=== PATIENT | female | born 1975 | race Caucasian/White ===

== ENCOUNTER → 2017-05-03 | Outpatient (CLI) | payer OTHER ==
--- NOTE | 2017-05-03 09:33 | WOMENS IMAGING REPORT ---
EXAM DESCRIPTION: 3D SCREENING MAMMO BILAT COMPLETED DATE/TIME: 05/03/2017 8:47 am REASON FOR STUDY: ROUTINE SCREENING;Z12.31 Z12.31 ENCNTR SCREEN MAMMOGRAM FOR MALIGNANT NEOPLASM OF MARIA DOLORES COMPARISON: None. TECHNIQUE: Standard craniocaudal and mediolateral oblique views of each breast recorded using digita l acquisition and breast tomosynthesis. LIMITATIONS: None. FINDINGS: No masses, calcifications or architectural distortion. No areas of suspicion. Read with the assistance of CAD. .[facility] - R2 Cenova Version 1.3 .[facility] Imaging - R2 Cenova Version 1.3 .[facility] Imaging - R2 Cenova Version 2.4 .[facility] - R2 Cenova Version 2.4 .[facility] - R2 [employer] Field Technician Version 9.2 IMPRESSION: NORMAL MAMMOGRAM. BIRADS 1. BREAST DENSITY: b. There are scattered areas of fibroglandular density. BIRAD: 1 NEGATIVE RECOMMENDATION: ROUTINE SCREENING COMMENT: The patient has been notified of the results by letter per SA requirements. Additional no tification policies are in place for contacting patient with suspicious or incomplete findings. Quality ID #[id number]: The [employer] recommends an annual screening mammogram for women aged 40 years or over. This facility utilizes a reminder system to ensure that all patients receive reminder letters, and/or direct phone calls for appointments. This includes reminders for routine scr eening mammograms, diagnostic mammograms, or other Breast Imaging Interventions when appropriate. Th is patient will be placed in the appropriate reminder system. The [employer] (ACR) has developed recommendations for screening MRI of the breast s in certain patient populations, to be used in conjunction with mammography. Breast MRI surveillanc e may be appropriate for women with more than 20% lifetime risk of developing breast cancer as deter mined by genetic testing, significant family history of the disease, or history of mantle radiation f or Hodgkins Disease. ACR Practice Guidelines 2008. DBT Technology DBT is a type of tomographic mammography. With conventional mammography, overlapping breast tissue ma y make lesions difficult to detect, even with good compression. DBT uses an x-ray tube that rotates a round the breast, taking images at different angles. These images are then combined to create thin sl ices of the breast that the radiologist can view as a 3D reconstruction. The [employer] unit can perform full-field digital mammograms (2D imaging); or DBT (3D imaging); or both, in a combination mode that quickly performs both the mammogram and the tomosynthesis scan while the breast is still compressed. PQRS 6045F: Fluoroscopic imaging is not utilized for breast tomosynthesis. TECHNICAL DOCUMENTATION: FINDING NUMBER: (1) ASSESSMENT: (1) JOB ID: [id number] [employer]- All Rights Reserved Reading location - IP/workstation name: [facility]
== END ==
LOC: WI 08:25
PROVIDERS: ATTEND Nurse Practitioner Primary Care
DX: Z12.31 Encounter for screening mammogram for malignant neoplasm of breast (principal); Z80.3 Family history of malignant neoplasm of breast
CPT/HCPCS: 77063; 77067

== ENCOUNTER 2018-10-30 18:46 | Emergency (ER) | payer OTHER ==
[2018-10-30 19:17] VITALS: BP 104/62
[2018-10-30] MEDS ORDERED: LIDOCAINE 2% VISCOUS SOLN 20 ML UDCUP PO ONE (19:34)
[2018-10-30] MEDS ORDERED: IBUPROFEN 800 MG TABLET PO ONE (19:34)
--- NOTE | 2018-10-30 19:39 | ER Document Report ---
HPI - HPI Patient complains to provider of: sore throat Time Seen by Provider: 10/30/18 19:22 Onset: Last week Onset/Duration: Persistent Quality of pain: Achy Pain Level: 4 Context: Patient presents complaining of sore throat body aches for the past week. No fever. Child is here with similar symptoms. Associated Symptoms: Body/muscle aches, Sore throat. denies: Nonproductive cough, Productive cough, Earache, Fever Exacerbated by: Denies Relieved by: Denies Similar symptoms previously: Yes Recently seen / treated by doctor: No - ROS ROS below otherwise negative: Yes Systems Reviewed and Negative: Yes All other systems reviewed and negative - CONSTITUTIONAL Constitutional: DENIES: Fever - EENT EENT: REPORTS: Sore Throat. DENIES: Ear Pain, Congestion - RESPIRATORY Respiratory: DENIES: Coughing - GASTROINTESTINAL Gastrointestinal: DENIES: Nausea, Patient vomiting - REPRODUCTIVE Reproductive: DENIES: : - DERM Skin Color: Normal Skin Problems: None Past Medical History - General Information source: Patient - Social History Smoking Status: Current Every Day Smoker Smoking Education Provided: Yes Frequency of alcohol use: None Drug Abuse: None Occupation: post office Lives with: Family Family History: DM, Other - Gallbladder disease, uncle had a heart attack in his 50s - Past Medical History Cardiac Medical History: Reports: Hx Hypercholesterolemia Denies: Hx Hypertension Neurological Medical History: Denies: Hx Cerebrovascular Accident, Hx Seizures Endocrine Medical History: Reports: Hx Diabetes Mellitus Type 1 Musculoskeletal Medical History: Denies Hx Arthritis Past Surgical History: Reports: Hx Section - 2, Hx Cholecystectomy, Hx Tubal Ligation - Immunizations Hx Diphtheria, Pertussis, Tetanus Vaccination: No Vertical Provider Document - CONSTITUTIONAL Agree With Documented VS: Yes Exam Limitations: No Limitations General Appearance: WD/WN, No Apparent Distress - INFECTION CONTROL TRAVEL OUTSIDE OF THE [place] IN LAST 30 DAYS: No - HEENT HEENT: Atraumatic, Normocephalic, Pharyngeal Tenderness, Pharyngeal Erythema. negative: Pharyngeal Exudate - NECK Neck: Lymphadenopathy-Left, Lymphadenopathy-Right - RESPIRATORY Respiratory: Breath Sounds Normal, No Respiratory Distress - CARDIOVASCULAR Cardiovascular: Regular Rate, Regular Rhythm, No Murmur - BACK Back: Normal Inspection - MUSCULOSKELETAL/EXTREMETIES Musculoskeletal/Extremeties: MAEW - NEURO Level of Consciousness: Awake, Alert, Appropriate Motor/Sensory: No Motor Deficit - DERM Integumentary: Warm, Dry, No Rash Course - Re-evaluation Re-evalutation: 10/30/18 20:13 Patient nontoxic in appearance. No concern for SUPPLY PERSON. Throat culture is pending at this time. Will treat symptomatically. - Vital Signs Vital signs: Temp Pulse Resp BP Pulse Ox 98.9 F 85 16 104/62 96 10/30/18 19:14 10/30/18 19:14 10/30/18 19:14 10/30/18 19:14 10/30/18 19:14 - Laboratory Laboratory results interpreted by me: 10/30/18 20:04 Labs- Entire Visit 10/30/18 19:30 Group A Strep Rapid NEGATIVE Discharge - Discharge Clinical Impression: Sore throat (viral) Condition: Stable Disposition: HOME, SELF-CARE Instructions: Acetaminophen, Sore Throat ([facility]) Additional Instructions: Return immediately for any new or worsening symptoms Followup with your primary care provider, call tomorrow to make a followup appointment Throat culture is pending, we will call if you need any different treatment Forms: Return to Work Referrals: FLOWER LORENZO NP [NURSE PRACTITIONER] - Follow up as needed
== END 2018-10-30 20:10 | disposition home or self-care (01) ==
LOC: ER 18:46
DX: J02.9 Acute pharyngitis, unspecified (principal); B97.89 Other viral agents as the cause of diseases classified elsewhere; M79.10 Myalgia, unspecified site; F17.200 Nicotine dependence, unspecified, uncomplicated; E10.9 Type 1 diabetes mellitus without complications
CPT/HCPCS: 99283; 87070; 87880; J3490

== ENCOUNTER 2018-12-09 15:17 | Observation (INO) | payer OTHER ==
[2018-12-09] MEDS ORDERED: METOCLOPRAMIDE HCL ORAL SOLN 10 MG/10 ML UDCUP PO ONE (15:27)
[2018-12-09] MEDS ORDERED: LIDOCAINE 2% VISCOUS SOLN 20 ML UDCUP PO ONE (15:27)
[2018-12-09] MEDS ORDERED: MAG HYDROX/AL HYDROX/SIMETH SUSP 30 ML UDCUP PO ONE (15:27)
--- NOTE | 2018-12-09 15:30 | ER Document Report ---
ED Medical Screen (RME) - General Chief Complaint: Abdominal Pain Stated Complaint: ABDOMINAL PAIN Time Seen by Provider: 12/09/18 15:27 Primary Care Provider: GAMAL,ELIZA [Primary Care Provider] - Follow up as needed TRAVEL OUTSIDE OF THE [place] IN LAST 30 DAYS: No - HPI Notes: 12/09/18 15:28 Patient is a 43-year-old female with a history of DM, PUD, cholecystectomy, and 2 previous C-sections who presents complaining of epigastric abdominal pain. Patient has had some nausea without vomiting. Patient states that she has had an ulcer before and it feels similar. The pain does not radiate. She is able to eat and drink without any noticeable changes. She is urinating normally and having normal bowel movements with the last one being prior to arrival. She has not had any melena or hematochezia. No fever. I have treated and performed a rapid initial assessment of this patient. A comprehensive ED assessment and evaluation of the patient, analysis of test results and completion of medical decision making process will be conducted by additional ED providers. PHYSICAL EXAMINATION: GENERAL: Well-appearing, well-nourished and in no acute distress. A&Ox4. Answers questions appropriately. Abdomen: Tenderness noted to the epigastrium to palpation. Limited exam in triage. - Related Data Allergies/Adverse Reactions: No Known Allergies Allergy (Verified 12/09/18 15:25) Past Medical History - Past Medical History Cardiac Medical History: Reports: Hx Hypercholesterolemia Denies: Hx Hypertension Neurological Medical History: Denies: Hx Cerebrovascular Accident, Hx Seizures Endocrine Medical History: Reports: Hx Diabetes Mellitus Type 1 Renal/ Medical History: Denies: Hx Peritoneal Dialysis Musculoskeltal Medical History: Denies Hx Arthritis Past Surgical History: Reports: Hx Section - 2, Hx Cholecystectomy, Hx Tubal Ligation - Immunizations Hx Diphtheria, Pertussis, Tetanus Vaccination: No Physical Exam - Vital signs Vitals: Temp Pulse Resp BP Pulse Ox 98.6 F 87 16 134/70 H 97 12/09/18 15:20 12/09/18 15:20 12/09/18 15:20 12/09/18 15:20 12/09/18 15:20 Course - Vital Signs Vital signs: Temp Pulse Resp BP Pulse Ox 98.6 F 87 16 134/70 H 97 12/09/18 15:20 12/09/18 15:20 12/09/18 15:20 12/09/18 15:20 12/09/18 15:20 Doctor's Discharge - Discharge Referrals: [facility] [Primary Care [facility]] - Follow up as needed
[2018-12-09 16:03] LABS: ABSOLUTE EOSINOPHILS # (AUTO) 0.4 10^3/uL (0.0-0.6); ABSOLUTE LYMPHOCYTES (AUTO) 2.2 10^3/uL (0.5-4.7); ABSOLUTE MONOCYTES (AUTO) 0.5 10^3/uL (0.1-1.4); ABSOLUTE NEUT (AUTO) 4.9 10^3/uL (1.7-8.2); BASOPHILS % (AUTO) 0.4 % (0-2); HEMATOCRIT 38.4 % (36.0-47.0); LYMPHOCYTES % (AUTO) 27.1 % (13-45); MEAN CORPUSCULAR HEMOGLOBIN 28.2 pg (27.0-33.4); MEAN CORPUSCULAR HGB CONC 33.8 g/dL (32.0-36.0); MEAN CORPUSCULAR VOLUME 84 fl (80-97); MONOCYTES % (AUTO) 6.6 % (3-13); PLATELET COUNT 212 10^3/uL (150-450); RED CELL DISTRIBUTION WIDTH 13.6 % (11.5-14.0); SEGMENTED NEUTROPHILS % (AUTO) 60.9 % (42-78); TOTAL CELLS COUNTED % (AUTO) 100 %
[2018-12-09 16:21] LABS: ALBUMIN 4.5 g/dL (3.5-5.0); ALKALINE PHOSPHATASE 85 U/L (38-126); ANION GAP 10 (5-19); ASPARTATE AMINO TRANSFERASE 20 U/L (14-36); BILIRUBIN,DIRECT 0.2 mg/dL (0.0-0.4); BILIRUBIN,TOTAL 0.4 mg/dL (0.2-1.3); BLOOD UREA NITROGEN 15 mg/dL (7-20); CALCIUM 9.8 mg/dL (8.4-10.2); CARBON DIOXIDE 26 mmol/L (22-30); CHLORIDE 101 mmol/L (98-107); GLUCOSE 210 mg/dL (75-110); POTASSIUM 4.1 mmol/L (3.6-5.0); TOTAL PROTEIN 7.5 g/dL (6.3-8.2)
[2018-12-09 16:23] LABS: APPEARANCE,URINE CLEAR; BILIRUBIN,URINE NEGATIVE (NEGATIVE); COLOR,URINE YELLOW; GLUCOSE, URINE 50 mg/dL (NEGATIVE); KETONES,URINE NEGATIVE (NEGATIVE); PROTEIN,URINE NEGATIVE (NEGATIVE); URINE SPECIFIC GRAVITY 1.009; UROBILINOGEN,URINE NEGATIVE mg/dL (<2.0)
[2018-12-09] MEDS ORDERED: NORMAL SALINE 1000 ML 1,000 ML IV ONE (16:45)
--- NOTE | 2018-12-09 16:57 | ER Document Report ---
ED General - General Chief Complaint: Abdominal Pain Stated Complaint: ABDOMINAL PAIN Time Seen by Provider: 12/09/18 15:27 Primary Care Provider: ELIZA YEUNG [Primary Care Provider] - Follow up as needed TRAVEL OUTSIDE OF THE [place] IN LAST 30 DAYS: No - HPI Notes: Patient is a 43-year-old female who presents to the emergency department for evaluation of epigastric abdominal pain. She states actually on Tuesday as started as a vague generalized abdominal pain. Is progressively worsened. She described it initially as a pressure and bloating sensation. It then was associated with nausea. Now she has sharp and shooting pains in her epigastrium, occasional radiation into the right upper quadrant. She denies any fevers or chills. She has had nausea but no emesis. Normal bowel movements. No urinary symptoms. She is never had pain similar to this in the past. - Related Data Allergies/Adverse Reactions: No Known Allergies Allergy (Verified 12/09/18 15:25) Home Medications: Lantus, metformin, lisinopril Past Medical History - General Information source: Patient - Social History Smoking Status: Current Every Day Smoker Family History: DM, Other - Gallbladder disease, uncle had a heart attack in his 50s Patient has suicidal ideation: No Patient has homicidal ideation: No Neurological Medical History: Denies: Hx Cerebrovascular Accident, Hx Seizures Endocrine Medical History: Reports: Hx Diabetes Mellitus Type 2 Renal/ Medical History: Denies: Hx Peritoneal Dialysis Musculoskeletal Medical History: Denies Hx Arthritis Past Surgical History: Reports: Hx Section - 2, Hx Cholecystectomy, Hx Tubal Ligation - Immunizations Hx Diphtheria, Pertussis, Tetanus Vaccination: No Review of Systems - Review of Systems Constitutional: No symptoms reported EENT: No symptoms reported Cardiovascular: No symptoms reported Respiratory: No symptoms reported Gastrointestinal: See HPI Genitourinary: No symptoms reported Musculoskeletal: No symptoms reported Skin: No symptoms reported Neurological/Psychological: No symptoms reported Physical Exam - Vital signs Vitals: Temp Pulse Resp BP Pulse Ox 98.6 F 87 16 134/70 H 97 12/09/18 15:20 12/09/18 15:20 12/09/18 15:20 12/09/18 15:20 12/09/18 15:20 - Notes Notes: Vital signs reviewed, please refer to chart. Head is normocephalic, atraumatic. Pupils equal round, reactive to light. Neck is supple without meningismus. Heart is regular rate and rhythm. Lungs are clear to auscultation bilaterally. Abdomen is soft, moderate epigastric tenderness without rebound or guarding normoactive bowel sounds throughout. Extremities without cyanosis, clubbing. Posterior calves are nontender. Peripheral pulses are equal. Skin is warm and dry. Patient is awake, alert, neurological exam is nonfocal. Course - Re-evaluation Re-evalutation: 12/09/18 16:56 Patient presents emergency department for evaluation. Laboratory investigations initial medication as ordered through triage. Findings are most consistent with acute pancreatitis. Her lipase is over 1000. She is already had a cholecystectomy. CT scan of the abdomen and pelvis with IV contrast is ordered to evaluate for possible other etiologies. She is kept n.p.o. and given IV fluids. She currently puts her pain notably at a 1 out of 10. We will continue to monitor. 12/09/18 18:05 Patient remained stable. She stated her pain increased somewhat, she was medica maame with half milligram of Dilaudid. She is kept n.p.o. Her CT scan failed to reveal any significant process, but given her elevated lipase, patient does meet criteria for pancreatitis. I spoke with Mara Travis NP. The patient will be admitted under Dr. Porter. - Vital Signs Vital signs: Temp Pulse Resp BP Pulse Ox 98.6 F 87 16 134/70 H 97 12/09/18 15:20 12/09/18 15:20 12/09/18 15:20 12/09/18 15:20 12/09/18 15:20 - Laboratory Result Diagrams: 12/09/18 15:45 12/09/18 15:45 Laboratory results interpreted by me: 12/09/18 12/09/18 15:31 15:45 Sodium 136.9 L Glucose 210 H Lipase 1418.7 H Urine Glucose (UA) 50 H - Diagnostic Test Radiology reviewed: Reports reviewed Radiology results interpreted by va: 12/09/18 18:06 Abdomen/Pelvis CT 12/09/18 16:54 IMPRESSION: Status post cholecystectomy. No evidence of acute intra-abdominal infectious/ inflammatory process. Discharge - Discharge Clinical Impression: Acute pancreatitis Condition: Stable Disposition: ADMITTED INPATIENT Admitting Provider: German (Hospitalist) - Mara Travis NP Unit Admitted: Medical Floor Referrals: [facility] [Primary Care [facility]] - Follow up as needed
[2018-12-09] MEDS ORDERED: HYDROMORPHONE HCL INJ/PF 2 MG/ML AMPULE IV ONE (17:18)
--- NOTE | 2018-12-09 17:44 | RADIOLOGY REPORT (SQ) ---
EXAM DESCRIPTION: CT ABD/PELVIS WITH IV ONLY COMPLETED DATE/TIME: 12/09/2018 5:28 pm REASON FOR STUDY: pancreatitis COMPARISON: None. TECHNIQUE: CT scan of the abdomen and pelvis performed using helical scanning technique with dynamic intravenous contrast injection. No oral contrast. Images reviewed with lung, soft tissue, and bone windows. Reconstructed coronal and sagittal MPR images reviewed. Delayed images for evaluation of the urinary system also acquired. All images stored on PACS. All CT scanners at this facility use dose modulation, iterative reconstruction, and/or weight based d osing when appropriate to reduce radiation dose to as low as reasonably achievable (ALARA). [facility]: Dose Right [facility]: CareDose [facility]: Dose Right [facility]: Teradose 4D [facility]: Vocalcom CONTRAST TYPE AND DOSE: contrast/concentration: Isovue 350.00 mg/ml; Total Contrast Delivered: 100.0 ml; Total Saline Delivered: 72.0 ml RENAL FUNCTION: BUN 15; creatinine 0.7 RADIATION DOSE: CT Rad equipment meets quality standard of care and radiation dose reduction techniq ues were employed. CTDIvol: 8.6 - 12.2 mGy. DLP: 1093 mGy-cm.. LIMITATIONS: None. FINDINGS: LOWER CHEST: No significant findings. No nodules or infiltrates. LIVER: Normal size. No masses. No dilated ducts. SPLEEN: Normal size. No focal lesions. PANCREAS: No masses. No significant calcifications. No adjacent inflammation or peripancreatic fluid collections. Pancreatic duct not dilated. GALLBLADDER: Surgically absent. ADRENAL GLANDS: No significant masses or asymmetry. RIGHT KIDNEY AND URETER: No solid masses. No significant calcifications. No hydronephrosis or hyd roureter. LEFT KIDNEY AND URETER: No solid masses. No significant calcifications. No hydronephrosis or hydr oureter. AORTA AND VESSELS: No aneurysm. No dissection. Renal arteries, SMA, celiac without stenosis. RETROPERITONEUM: No retroperitoneal adenopathy, hemorrhage or masses. BOWEL AND PERITONEAL CAVITY: No masses or inflammatory changes. No free fluid or peritoneal masses. APPENDIX: Normal. PELVIS: No mass. No free fluid. Normal bladder. ABDOMINAL WALL: No masses. No hernias. Scattered foci of subcutaneous fat stranding involving the lo wer anterior abdominal wall likely represent subcutaneous injection sites. BONES: No significant or acute findings. OTHER: No other significant finding. IMPRESSION: Status post cholecystectomy. No evidence of acute intra-abdominal infectious/ inflammat ory process. TECHNICAL DOCUMENTATION: JOB ID: [id number] Quality ID # [id number]: Final reports with documentation of one or more dose reduction techniques (e.g., Au tomated exposure control, adjustment of the mA and/or kV according to patient size, use of iterative reconstruction technique) 2010 [employer]- All Rights Reserved Reading location - IP/workstation name: [email or web address]
[2018-12-09] MEDS ORDERED: ALBUTEROL SULFATE 0.083% NEB 2.5 MG/3 ML AMPUL NEB PRN (18:14)
[2018-12-09] MEDS ORDERED: ONDANSETRON HCL INJ/PF 4 MG/2 ML SDV IV PRN (18:14)
[2018-12-09] MEDS ORDERED: ACETAMINOPHEN 325 MG TABLET PO PRN (18:14)
[2018-12-09] MEDS ORDERED: PROMETHAZINE HCL INJ 25 MG/1 ML VIAL IV PRN (18:14)
[2018-12-09] MEDS ORDERED: DEXTROSE 50%-WATER 25 GM/50 ML DISP.SYRIN IV PRN ×2 (18:18)
[2018-12-09] MEDS ORDERED: DEXTROSE 40% GEL 15 GM TUBE PO PRN ×2 (18:18)
[2018-12-09] MEDS ORDERED: HYDRALAZINE HCL INJ/PF 20 MG/1 ML SDV IV PRN (18:18)
[2018-12-09] MEDS ORDERED: GLUCAGON,HUMAN RECOMB 1 MG INJ IM PRN (18:18)
[2018-12-09] MEDS ORDERED: KETOROLAC TROMETHAMINE INJ/PF 30 MG/1 ML SDV IV PRN (18:32)
[2018-12-09] MEDS ORDERED: HYDROMORPHONE HCL INJ/PF 2 MG/ML AMPULE IV PRN (18:32)
[2018-12-09] MEDS ORDERED: NICOTINE 14 MG/24 HR PATCH.TD24 TD PRN (18:33)
--- NOTE | 2018-12-09 18:41 | PDOC H&P ---
History of Present Illness Admission Date/PCP: 12/09/18 18:18 [facility] Patient complains of: abdominal pain History of Present Illness: STEPHEN GUERRERO is a 43 year old female with a past medical history of insulin-dependent diabetes mellitus, hyperlipidemia, obesity, and tobacco dependence with continuous use who presented to the emergency department today w ith sudden onset abdominal pain, nausea and vomiting. Evaluation in the emergency department revealed stable vital signs, normal CBC, glucose of 210, lipase 1400, negative urinalysis and benign CT of the abdomen and pelvis. She has been provided IV fluids and analgesics. She is referred to the hospitalist service for admission and management of acute pancreatitis. Past Medical History Cardiac Medical History: Reports: Hyperlipidema Denies: Coronary Artery Disease, Hypertension Pulmonary Medical History: Reports: None Neurological Medical History: Denies: Ischemic CVA, Seizures Endocrine Medical History: Reports: Diabetes Mellitus Type 2 - Insulin- dependent, Obesity Renal/ Medical History: Reports: None Malignancy Medical History: Reports: None GI Medical History: Reports: None Musculoskeltal Medical History: Denies: Arthritis Psychiatric Medical History: Reports: Tobacco Dependency Traumatic Medical History: Reports: None Hematology: Denies: Anemia Infectious Medical History: Reports: None Past Surgical History Past Surgical History: Reports: Section - 2, Cholecystectomy, Tubal Ligation Social History Information Source: Patient Lives with: Family Smoking Status: Current Every Day Smoker Cigarettes Packs Per Day: 0.5 Electronic Cigarette use?: No Frequency of Alcohol Use: Rare Hx Recreational Drug Use: No Drugs: None Hx Prescription Drug Abuse: No - Advance Directive Resuscitation Status: Full Code Surrogate healthcare decision maker:: The patient's mother, Kim Douglas, [phone]. Family History Family History: DM, Other - Gallbladder disease, uncle had a heart attack in his 50s Parental Family History Reviewed: Yes Children Family History Reviewed: Yes Sibling(s) Family History Reviewed.: Yes Medication/Allergy Home Medications: Insulin Detemir [Levemir] 30 unit SQ BID 12/09/18 Lisinopril [Prinivil 30 mg Tablet] 15 mg PO ONCE PRN 12/09/18 Metformin HCl [Glucophage] 1,000 mg PO BID 12/09/18 Allergies/Adverse Reactions: No Known Allergies Allergy (Verified 12/09/18 15:25) Review of Systems Constitutional: ABSENT: chills, fever(s), headache(s), weight gain, weight loss Eyes: ABSENT: visual disturbances Ears: ABSENT: hearing changes Cardiovascular: ABSENT: chest pain, dyspnea on exertion, edema, orthropnea, palpitations Respiratory: ABSENT: cough, hemoptysis Gastrointestinal: PRESENT: abdominal pain, nausea, vomiting. ABSENT: constipation, diarrhea, hematemesis, hematochezia Genitourinary: ABSENT: dysuria, hematuria Musculoskeletal: ABSENT: joint swelling Integumentary: ABSENT: rash, wounds Neurological: ABSENT: abnormal gait, abnormal speech, confusion, dizziness, focal weakness, syncope Psychiatric: ABSENT: anxiety, depression, homidical ideation, suicidal ideation Endocrine: ABSENT: cold intolerance, heat intolerance, polydipsia, polyuria Hematologic/Lymphatic: ABSENT: easy bleeding, easy bruising Physical Exam Vital Signs: Temp Pulse Resp BP Pulse Ox 98.6 F 87 16 134/70 H 97 12/09/18 15:20 12/09/18 15:20 12/09/18 15:20 12/09/18 15:20 12/09/18 15:20 Intake & Output 12/08/18 12/09/18 12/10/18 06:59 06:59 06:59 Weight 86.5 kg General appearance: PRESENT: no acute distress, cooperative, well-developed, well-nourished - Overweight Head exam: PRESENT: atraumatic, normocephalic Eye exam: PRESENT: conjunctiva pink, EOMI, PERRLA. ABSENT: scleral icterus Ear exam: PRESENT: normal external ear exam Mouth exam: PRESENT: moist, tongue midline Neck exam: ABSENT: carotid bruit, JVD, lymphadenopathy, thyromegaly Respiratory exam: PRESENT: clear to auscultation mary, symmetrical, unlabored. ABSENT: rales, rhonchi, wheezes Cardiovascular exam: PRESENT: RRR, +S1, +S2. ABSENT: diastolic murmur, rubs, systolic murmur Pulses: PRESENT: normal dorsalis pedis pul Vascular exam: PRESENT: normal capillary refill GI/Abdominal exam: PRESENT: hypoactive bowel sounds, soft, tenderness. ABSENT: distended, guarding, mass, organolmegaly, rebound Rectal exam: PRESENT: deferred Extremities exam: PRESENT: full ROM. ABSENT: calf tenderness, clubbing, pedal edema Neurological exam: PRESENT: alert, awake, oriented to person, oriented to place, oriented to time, oriented to situation, CN II-XII grossly intact. ABSENT: motor sensory deficit Psychiatric exam: PRESENT: appropriate affect, normal mood. ABSENT: homicidal ideation, suicidal ideation Skin exam: PRESENT: dry, intact, warm. ABSENT: cyanosis, rash Results Laboratory Results: 12/09/18 15:45 12/09/18 15:45 12/09/18 12/09/18 12/09/18 15:31 15:45 15:45 WBC 8.0 RBC 4.60 Hgb 13.0 Hct 38.4 MCV 84 MCH 28.2 MCHC 33.8 RDW 13.6 Plt Count 212 Seg Neutrophils % 60.9 Sodium 136.9 L Potassium 4.1 Chloride 101 Carbon Dioxide 26 Anion Gap 10 BUN 15 Creatinine 0.70 Est GFR ( Amer) > 60 Glucose 210 H Calcium 9.8 Total Bilirubin 0.4 AST 20 Alkaline Phosphatase 85 Total Protein 7.5 Albumin 4.5 Lipase 1418.7 H Urine Color YELLOW Urine Appearance CLEAR Urine pH 6.0 Ur Specific [place] 1.009 Urine Protein NEGATIVE Urine Glucose (UA) 50 H Urine Ketones NEGATIVE Urine Blood NEGATIVE Urine RBC (Auto) 1 Impressions: Abdomen/Pelvis CT 12/09/18 16:54 IMPRESSION: Status post cholecystectomy. No evidence of acute intra-abdominal infectious/ inflammatory process. Assessment and Plan - Diagnosis (1) Acute pancreatitis Qualifiers: Pancreatitis type: unspecified pancreatitis type Acute pancreatitis c omplication: no infection or necrosis Qualified Code(s): K85.90 - Acute pancreatitis without necrosis or infection, unspecified Is this a current diagnosis for this admission?: Yes Plan: Patient is admitted with sudden onset abdominal discomfort, nausea and vomiting. CBC is unremarkable. Lipase elevated 1400. CT abdomen and pelvis is benign. Patient is admitted to medical floor. She is placed in n.p.o. status with the exception of ice chips. Generous IV fluids. Analgesics and antiemetics as needed. We will check follow-up chemistry, CBC, A1c, lipid panel, and lipase with a.m. lab work. (2) Diabetes mellitus Qualifiers: Diabetes mellitus type: type 2 Diabetes mellitus intermodal dispatcher insulin use: with intermodal dispatcher use Diabetes mellitus complication status: with hyperglycemia Qualified Code(s): E11.65 - Type 2 diabetes mellitus with hyperglycemia; Z79.4 - group home (current) use of insulin Is this a current diagnosis for this admission?: Yes Plan: Currently in n.p.o. status. We will provide Lantus 10 units every 12 hours (typically takes 30 units twice daily). Accu-Cheks every 6 hours with sliding scale insulin. Hypoglycemia protocol in place. (3) Tobacco dependence Is this a current diagnosis for this admission?: Yes Plan: Smoking cessation encouraged. Nicotine replacement therapies provided. (4) Obesity Qualifiers: Body mass index: BMI 30.0-30.9 Is this a current diagnosis for this admission?: Yes Plan: BMI of 30.8. Dietary discretion and lifestyle modification are encouraged. - Time Time Spent with patient: 35 or more minutes Smoking Cessation Education: 3 to 10 minutes Medications reviewed and adjusted accordingly: Yes Anticipated discharge: Home Within: within 24 hours
[2018-12-09 18:52] LABS: URINE AMPHETAMINES SCREEN NEGATIVE; URINE BARBITURATES SCREEN NEGATIVE; URINE BENZODIAZEPINES SCREEN NEGATIVE; URINE COCAINE SCREEN NEGATIVE; URINE MARIJUANA (THC) SCREEN NEGATIVE; URINE METHADONE SCREEN NEGATIVE; URINE PHENCYCLIDINE SCREEN NEGATIVE
[2018-12-09] MEDS: NORMAL SALINE 1000 ML 1,000 ML IV PRN (19:49)
[2018-12-09] MEDS ORDERED: INSULIN GLARGINE,HUM.REC.ANLOG 1,000 UNIT/10 ML VIAL (PYX) SUBCUT ONE (21:51)
[2018-12-09] MEDS: INSULIN GLARGINE,HUM.REC.ANLOG 1,000 UNIT/10 ML VIAL SUBCUT SCH (22:03)
[2018-12-09] MEDS: HEPARIN SOD (PORCINE) 5,000 UNIT/ML 1 ML VIAL SUBCUT SCH (22:04)
[2018-12-09] MEDS: PANTOPRAZOLE SODIUM 40 MG VIAL IV SCH (22:05)
[2018-12-09] MEDS: INSULIN LISPRO 100 UNIT/ML 3 ML VIAL SUBCUT SCH (22:08)
[2018-12-10] MEDS: NORMAL SALINE 1000 ML 1,000 ML IV PRN (05:07)
[2018-12-10] MEDS: HEPARIN SOD (PORCINE) 5,000 UNIT/ML 1 ML VIAL SUBCUT SCH (05:13)
[2018-12-10 05:27] LABS: HEMATOCRIT 36.5 % (36.0-47.0); HEMOGLOBIN 12.1 g/dL (12.0-15.5); MEAN CORPUSCULAR HGB CONC 33.2 g/dL (32.0-36.0); MEAN CORPUSCULAR VOLUME 84 fl (80-97); PLATELET COUNT 182 10^3/uL (150-450); RED BLOOD COUNT 4.33 10^6/uL (3.72-5.28); RED CELL DISTRIBUTION WIDTH 13.8 % (11.5-14.0); WHITE BLOOD COUNT 6.9 10^3/uL (4.0-10.5)
[2018-12-10 05:44] LABS: ANION GAP 6 (5-19); BLOOD UREA NITROGEN 11 mg/dL (7-20); CALCIUM 8.7 mg/dL (8.4-10.2); CARBON DIOXIDE 27 mmol/L (22-30); CHLORIDE 106 mmol/L (98-107); CHOLESTEROL 268.56 mg/dL (0-200); GLUCOSE 144 mg/dL (75-110); TRIGLYCERIDES 471 mg/dL (<150)
[2018-12-10 05:55] LABS: DIRECT LDL 146 mg/dL (<100)
[2018-12-10] MEDS: INSULIN LISPRO 100 UNIT/ML 3 ML VIAL SUBCUT SCH (08:03)
[2018-12-10] MEDS: INSULIN GLARGINE,HUM.REC.ANLOG 1,000 UNIT/10 ML VIAL SUBCUT SCH (09:36)
[2018-12-10] MEDS: PANTOPRAZOLE SODIUM 40 MG VIAL IV SCH (09:36)
[2018-12-10] MEDS ORDERED: FENOFIBRATE NANOCRYSTALLIZED 48 MG TABLET PO SCH (10:00)
[2018-12-10 12:01] VITALS: BP 94/53
--- NOTE | 2018-12-10 16:11 | PDOC DISCHARGE SUMMARY ---
Impression - Admit/DC Date/PCP Admission Date/Primary Care Provider: 12/09/18 18:18 [facility] Discharge Date: 12/10/18 - Discharge Diagnosis (1) Acute pancreatitis Is this a current diagnosis for this admission?: Yes (2) Diabetes mellitus Is this a current diagnosis for this admission?: Yes (3) Tobacco dependence Is this a current diagnosis for this admission?: Yes (4) Obesity Is this a current diagnosis for this admission?: Yes (5) High triglycerides Is this a current diagnosis for this admission?: Yes (6) Dyslipidemia (high LDL; low HDL) Is this a current diagnosis for this admission?: Yes - Additional Information Resuscitation Status: Full Code Discharge Diet: As Tolerated, Regular Discharge Activity: Activity As Tolerated, Balance Activity w/Rest, Slowly Increase Activity Referrals: [facility] [[facility]] - Follow up as needed Prescriptions: Nicotine [Nicoderm 14 mg/24 Hr Transdermal Patch] 1 each TD DAILYP PRN #30 patch.td24 PRN Reason: Hydrocodone/Acetaminophen [[place] 5-325 mg Tablet] 1 tab PO Q6HP PRN #12 tablet PRN Reason: Fenofibrate Nanocrystallized [Tricor 48 mg Tablet] 48 mg PO DAILY #30 tablet Ondansetron [Zofran Odt 4 mg Tablet] 1 - 2 tab PO Q4HP PRN #10 tab.rapdis PRN Reason: Home Medications: Acetaminophen [Tylenol 325 mg Tablet] 650 mg PO Q4HP PRN tablet 12/10/18 Cholecalciferol (Vitamin D3) [Vitamin D3 5000 unit Capsule] 5,000 unit PO DAILY 12/10/18 Fenofibrate Nanocrystallized [Tricor 48 mg Tablet] 48 mg PO DAILY #30 tablet 12/10/18 Hydrocodone/Acetaminophen [[place] 5-325 mg Tablet] 1 tab PO Q6HP PRN #12 tablet 12/10/18 Insulin Detemir [Levemir] 30 units SQ Q12 12/10/18 Lisinopril [Zestril] 15 mg PO DAILY 12/10/18 Metformin HCl [Glucophage 500 mg Tablet] 1,000 mg PO Q12 12/10/18 Multivitamin [Multiple Vitamins] 1 tab PO DAILY 12/10/18 Nicotine [Nicoderm 14 mg/24 Hr Transdermal Patch] 1 each TD DAILYP PRN #30 patch.td24 12/10/18 Ondansetron [Zofran Odt 4 mg Tablet] 1 - 2 tab PO Q4HP PRN #10 tab.rapdis 12/10/18 History of Present Illiness History of Present Illness: STEPHEN GUERRERO is a 43 year old female with a past medical history of insulin-dependent diabetes mellitus, hyperlipidemia, obesity, and tobacco dependence with continuous use who presented to the emergency department today with sudden onset abdominal pain, nausea and vomiting. Evaluation in the emergency department revealed stable vital signs, normal CBC, glucose of 210, lipase 1400, negative urinalysis and benign CT of the abdomen and pelvis. She has been provided IV fluids and analgesics. She is referred to the hospitalist service for admission and management of acute pancreatitis. Hospital Course Hospital Course: The patient was admitted to the medical floor. She was placed in n.p.o. status and supported with IV fluids, antiemetics and analgesics as needed. Fortunately she did not require any PRN medications overnight. This morning, CBC is normal, chemistry is unremarkable, A1c is 8.1% (patient indicates this is an improvement from her last check), lipid reveals HDL 19, LDL 146, triglycerides were 71. The patient's lipase is 448; down from 1400. She reports that her abdominal discomfort and nausea are entirely resolved. She was trialed on a low-fat, low residue, soft diet which she tolerated without difficulty. She is started on fenofibrate; provided a prescription at discharge. Lifestyle modification dietary discretion was strongly encouraged. Patient was instructed to avoid high fat foods, alcohol intake, and tobacco use. She is discharged home in stable condition and instructed to follow-up with her primary care provider within 1 week. Return to the emergency department as needed for concerning symptoms. Physical Exam Vital Signs: Temp Pulse Resp BP Pulse Ox 97.5 F 71 16 94/53 L 96 12/10/18 11:58 12/10/18 11:58 12/10/18 11:58 12/10/18 11:58 12/10/18 11:58 Intake & Output 12/09/18 12/10/18 12/11/18 06:59 06:59 06:59 Intake Total 1999 Balance 1999 Weight 87 kg General appearance: PRESENT: no acute distress, cooperative, obese, well- developed, well-nourished Head exam: PRESENT: atraumatic, normocephalic Eye exam: PRESENT: conjunctiva pink, EOMI, PERRLA. ABSENT: scleral icterus Ear exam: PRESENT: normal external ear exam Mouth exam: PRESENT: moist, tongue midline Neck exam: ABSENT: carotid bruit, JVD, lymphadenopathy, thyromegaly Respiratory exam: PRESENT: clear to auscultation mary, symmetrical, unlabored. ABSENT: rales, rhonchi, wheezes Cardiovascular exam: PRESENT: RRR, +S1, +S2. ABSENT: diastolic murmur, rubs, systolic murmur Pulses: PRESENT: normal dorsalis pedis pul Vascular exam: PRESENT: normal capillary refill GI/Abdominal exam: PRESENT: normal bowel sounds, soft. ABSENT: distended, guarding, mass, organolmegaly, rebound, tenderness Rectal exam: PRESENT: deferred Extremities exam: PRESENT: full ROM. ABSENT: calf tenderness, clubbing, pedal edema Neurological exam: PRESENT: alert, awake, oriented to person, oriented to place, oriented to time, oriented to situation, CN II-XII grossly intact. ABSENT: motor sensory deficit Psychiatric exam: PRESENT: appropriate affect, normal mood. ABSENT: homicidal ideation, suicidal ideation Skin exam: PRESENT: dry, intact, warm. ABSENT: cyanosis, rash Results Laboratory Results: WBC 6.9 10^3/uL (4.0-10.5) 12/10/18 04:49 RBC 4.33 10^6/uL (3.72-5.28) 12/10/18 04:49 Hgb 12.1 g/dL (12.0-15.5) 12/10/18 04:49 Hct 36.5 % (36.0-47.0) 12/10/18 04:49 MCV 84 fl (80-97) 12/10/18 04:49 MCH 28.0 pg (27.0-33.4) 12/10/18 04:49 MCHC 33.2 g/dL (32.0-36.0) 12/10/18 04:49 RDW 13.8 % (11.5-14.0) 12/10/18 04:49 Plt Count 182 10^3/uL (150-450) 12/10/18 04:49 Lymph % (Auto) 27.1 % (13-45) 12/09/18 15:45 [place] % (Auto) 6.6 % (3-13) 12/09/18 15:45 Eos % (Auto) 5.0 % (0-6) 12/09/18 15:45 Baso % (Auto) 0.4 % (0-2) 12/09/18 15:45 Absolute Neuts (auto) 4.9 10^3/uL (1.7-8.2) 12/09/18 15:45 Absolute Lymphs (auto) 2.2 10^3/uL (0.5-4.7) 12/09/18 15:45 Absolute Monos (auto) 0.5 10^3/uL (0.1-1.4) 12/09/18 15:45 Absolute Eos (auto) 0.4 10^3/uL (0.0-0.6) 12/09/18 15:45 Absolute Basos (auto) 0.0 10^3/uL (0.0-0.2) 12/09/18 15:45 Seg Neutrophils % 60.9 % (42-78) 12/09/18 15:45 Sodium 139.3 mmol/L (137-145) 12/10/18 04:49 Potassium 4.0 mmol/L (3.6-5.0) 12/10/18 04:49 Chloride 106 mmol/L (98-107) 12/10/18 04:49 Carbon Dioxide 27 mmol/L (22-30) 12/10/18 04:49 Anion Gap 6 (5-19) 12/10/18 04:49 BUN 11 mg/dL (7-20) 12/10/18 04:49 Creatinine 0.67 mg/dL (0.52-1.25) 12/10/18 04:49 Est GFR ( Amer) > 60 (>60) 12/10/18 04:49 Est GFR (MDRD) Non-Af > 60 (>60) 12/10/18 04:49 Glucose 144 mg/dL (75-110) H 12/10/18 04:49 POC Glucose 175 mg/dL (70-110) H 12/10/18 05:56 Hemoglobin A1c % 8.1 % (4.7-6.0) H 12/10/18 04:49 Calcium 8.7 mg/dL (8.4-10.2) 12/10/18 04:49 Total Bilirubin 0.4 mg/dL (0.2-1.3) 12/09/18 15:45 Direct Bilirubin 0.2 mg/dL (0.0-0.4) 12/09/18 15:45 Neonat Total Bilirubin Not Reportable 12/09/18 15:45 Neonat Direct Bilirubin Not Reportable 12/09/18 15:45 Neonat Indirect Bili Not Reportable 12/09/18 15:45 AST 20 U/L (14-36) 12/09/18 15:45 ALT 29 U/L (<35) 12/09/18 15:45 Alkaline Phosphatase 85 U/L (38-126) 12/09/18 15:45 Total Protein 7.5 g/dL (6.3-8.2) 12/09/18 15:45 Albumin 4.5 g/dL (3.5-5.0) 12/09/18 15:45 Triglycerides 471 mg/dL (<150) H 12/10/18 04:49 Cholesterol 268.56 mg/dL (0-200) H 12/10/18 04:49 LDL Cholesterol Direct 146 mg/dL (<100) H 12/10/18 04:49 VLDL Cholesterol, Calc UNABLE TO CALCULATE 12/10/18 04:49 HDL Cholesterol 19 mg/dL (>40) L 12/10/18 04:49 Lipase 448.2 U/L (23-300) H 12/10/18 04:49 Urine Color YELLOW 12/09/18 15:31 Urine Appearance CLEAR 12/09/18 15:31 Urine pH 6.0 (5.0-9.0) 12/09/18 15:31 Ur Specific [place] 1.009 12/09/18 15:31 Urine Protein NEGATIVE mg/dL (NEGATIVE) 12/09/18 15:31 Urine Glucose (UA) 50 mg/dL (NEGATIVE) H 12/09/18 15:31 Urine Ketones NEGATIVE mg/dL (NEGATIVE) 12/09/18 15:31 Urine Blood NEGATIVE (NEGATIVE) 12/09/18 15:31 Urine Nitrite (Reflex) NEGATIVE (NEGATIVE) 12/09/18 15:31 Urine Bilirubin NEGATIVE (NEGATIVE) 12/09/18 15:31 Urine Urobilinogen NEGATIVE mg/dL (<2.0) 12/09/18 15:31 Leukocyte Esterase Rfl NEGATIVE (NEGATIVE) 12/09/18 15:31 Urine RBC (Auto) 1 /HPF 12/09/18 15:31 Urine Bacteria (Auto) TRACE /HPF 12/09/18 15:31 Urine WBC (Reflex) 1 /HPF 12/09/18 15:31 Squamous Epi Cells Auto <1 /HPF 12/09/18 15:31 Urine Mucus (Auto) RARE /LPF 12/09/18 15:31 Urine Ascorbic Acid NEGATIVE (NEGATIVE) 12/09/18 15:31 Urine HCG, Qual NEGATIVE (NEGATIVE) 12/09/18 15:31 Urine Opiates Screen NEGATIVE 12/09/18 15:31 Urine Methadone Screen NEGATIVE 12/09/18 15:31 Ur Barbiturates Screen NEGATIVE 12/09/18 15:31 Ur Phencyclidine Scrn NEGATIVE 12/09/18 15:31 Ur Amphetamines Screen NEGATIVE 12/09/18 15:31 U Benzodiazepines Scrn NEGATIVE 12/09/18 15:31 Urine Cocaine Screen NEGATIVE 12/09/18 15:31 U Marijuana (THC) Screen NEGATIVE 12/09/18 15:31 Impressions: Abdomen/Pelvis CT 12/09/18 16:54 IMPRESSION: Status post cholecystectomy. No evidence of acute intra-abdominal infectious/ inflammatory process. Plan Plan of Treatment: Patient is discharged home with self-care. She is advised to follow-up with her primary care provider within 1 week. She is instructed to eat a low acidic, low spice, low-fat diet and to avoid tobacco and alcohol use. She is instructed to drink plenty of fluids and to advance her diet slowly as tolerated. She is encouraged to continue with a consistent carb diet; with dietary and lifestyle modification to further improve glucose control. She is instructed to take her medications as prescribed. Return to the emergency department as needed for concerning symptoms. Stroke Is this a Stroke Patient?: No Acute Heart Failure - Is this a Heart Failure Patient?: No
[2018-12-11] MEDS ORDERED: INFLUENZA QUAD (6MOS+) 2019-20 VAC 0.5 ML SYR IM ONE (08:00)
== END 2018-12-10 12:11 | disposition home or self-care (01) ==
LOC: ER 15:17 → EH 18:18 → INTOOBSV 18:18 → 5 20:14
PROVIDERS: ADMIT Family Medicine; ATTEND Family Medicine
DX: K85.90 Acute pancreatitis without necrosis or infection, unspecified (principal); E11.9 Type 2 diabetes mellitus without complications; E66.9 Obesity, unspecified; E78.5 Hyperlipidemia, unspecified; E78.1 Pure hyperglyceridemia; F17.210 Nicotine dependence, cigarettes, uncomplicated; Z68.30 Body mass index [BMI] 30.0-30.9, adult; Z79.4 Long term (current) use of insulin
CPT/HCPCS: 99285; 96361; 96374; 36415 ×2; 82962 ×2; 83690 ×2; 85025; 85027; 81025; 80048; 80053; 81001; 80307; 83036; 80061; 74177; G0378 ×3; J1815 ×2; J1644; J3490; J1170; S0164 ×2; J7030 ×2

== ENCOUNTER 2019-06-12 14:24 | Emergency (ER) | payer OTHER ==
[2019-06-12] MEDS ORDERED: ONDANSETRON HCL INJ/PF 4 MG/2 ML SDV IV ONE (14:38)
[2019-06-12] MEDS ORDERED: NORMAL SALINE 1000 ML 1,000 ML IV ONE (14:39)
--- NOTE | 2019-06-12 14:39 | ER Document Report ---
ED Medical Screen (RME) - General Chief Complaint: Palpitations Stated Complaint: HEART PALPITATIONS/NAUSEA Time Seen by Provider: 06/12/19 14:35 Primary Care Provider: ELIZA YEUNG [Primary Care Provider] - Follow up as needed Information source: Patient Notes: Patient reports nausea off and on for the past 2 weeks with vomiting x1 episode today. Patient states that she had an episode of heart pounding and palpitations with some shortness of breath. Patient denies any cough or chest pain. Patient denies any dizziness. Patient states she did have intermittent upper abdominal tenderness similar to when she has had pancreatitis in the past although not as severe at this time. Patient does report a history of anxiety, dyslipidemia and diabetes. Patient has had a previous cholecystectomy. I have greeted and performed a rapid initial assessment of this patient. A comprehensive ED assessment and evaluation of the patient, analysis of test results and completion of the medical decision making process will be conducted by additional ED providers. TRAVEL OUTSIDE OF THE [place] IN LAST 30 DAYS: No - Related Data Allergies/Adverse Reactions: No Known Allergies Allergy (Verified 06/12/19 14:34) Past Medical History - Social History Chew tobacco use (# tins/day): No Frequency of alcohol use: None Drug Abuse: None - Past Medical History Cardiac Medical History: Reports: Hx Hypercholesterolemia Denies: Hx Coronary Artery Disease, Hx Hypertension Neurological Medical History: Denies: Hx Cerebrovascular Accident, Hx Seizures Endocrine Medical History: Reports: Hx Diabetes Mellitus Type 1, Hx Diabetes Mellitus Type 2 - Insulin-dependent Renal/ Medical History: Denies: Hx Peritoneal Dialysis Musculoskeltal Medical History: Denies Hx Arthritis Psychiatric Medical History: Denies: Hx Depression Past Surgical History: Reports: Hx Section - 2, Hx Cholecystectomy, Hx Tubal Ligation - Immunizations Hx Diphtheria, Pertussis, Tetanus Vaccination: No Physical Exam - Respiratory Respiratory status: No respiratory distress Breath sounds: Normal - Cardiovascular Rhythm: Regular, Tachycardia Heart sounds: S1 appreciated, S2 appreciated Doctor's Discharge - Discharge [facility]errals[facility] [[facility]] - Follow up as needed
--- NOTE | 2019-06-12 15:02 | RADIOLOGY REPORT (SQ) ---
EXAM DESCRIPTION: CHEST 2 VIEWS IMAGES COMPLETED DATE/TIME: 06/12/2019 2:48 pm REASON FOR STUDY: palpitations COMPARISON: 03/20/2013 EXAM PARAMETERS: NUMBER OF VIEWS: two views TECHNIQUE: Digital Frontal and Lateral radiographic views of the chest acquired. RADIATION DOSE: NA LIMITATIONS: none FINDINGS: LUNGS AND PLEURA: No opacities, masses or pneumothorax. No pleural effusion. MEDIASTINUM AND HILAR STRUCTURES: No masses or contour abnormalities. HEART AND VASCULAR STRUCTURES: Heart normal size. No evidence for failure. BONES: No acute findings. HARDWARE: None in the chest. OTHER: No other significant finding. IMPRESSION: NO ACUTE RADIOGRAPHIC FINDING IN THE CHEST. TECHNICAL DOCUMENTATION: JOB ID: [id number] 2010 [employer]- All Rights Reserved Reading location - IP/workstation name: [email or web address]
[2019-06-12] MEDS ORDERED: PANTOPRAZOLE SODIUM 40 MG VIAL IV ONE (15:45)
--- NOTE | 2019-06-12 15:58 | ER Document Report ---
Entered by SASKIA ORTIZ SCRIBE 06/12/19 1544 Acting as scribe for:AJAY STEIN DO ED General - General Chief Complaint: Palpitations Stated Complaint: HEART PALPITATIONS/NAUSEA Time Seen by Provider: 06/12/19 14:35 Primary Care Provider: ARAVIND WILEY MD [ACTIVE STAFF] - Follow up as needed [facility] - Follow up as needed Information source: Patient Notes: This 43-year-old female presents to the emergency department complaining of heart palpitations that occurred this afternoon. Patient explains that she has been "sick to her stomach" for the past couple of weeks. Patient said that her employer told her to come to the emergency department for a check-up. Patient reports that as she was getting off of her shift, she vomited on herself and had to go home to change. Patient states that when she was getting dressed, she felt her "heart pounding", heart racing and she "could not catch her breath". Patient stated that after her heart stopped "pounding", she began to catch her breath as her heart slowed down. Patient states that she still feels nauseous at this time. Patient reports chronic diarrhea. Patient denies fever and cough. Patient states that she is active and uses an elliptical three times a week for 30 minutes but due to increase work shifts, she has not been using her elliptical for the past month. Patient reports that she has an irregular period and her last menstrual period was 2 months ago. TRAVEL OUTSIDE OF THE [place] IN LAST 30 DAYS: No - Related Data Allergies/Adverse Reactions: No Known Allergies Allergy (Verified 06/12/19 14:34) Past Medical History - General Information source: Patient - Social History Smoking Status: Never Smoker Cigarette use (# per day): No Chew tobacco use (# tins/day): No Frequency of alcohol use: None Drug Abuse: None Family History: CAD, DM, Other - Gallbladder disease, uncle had a heart attack in his 50s Patient has suicidal ideation: No Patient has homicidal ideation: No - Past Medical History Cardiac Medical History: Reports: Hx Hypercholesterolemia Endocrine Medical History: Reports: Hx Diabetes Mellitus Type 1 GI Medical History: Reports: Hx Crohn's Disease Psychiatric Medical History: Reports: Hx Anxiety, Hx Depression Past Surgical History: Reports: Hx Section - X2, Hx Cholecystectomy, Hx Tubal Ligation - Immunizations Hx Diphtheria, Pertussis, Tetanus Vaccination: No Review of Systems - Review of Systems Constitutional: See HPI. denies: Fever EENT: No symptoms reported Cardiovascular: See HPI, Palpitations, Heart racing Respiratory: See HPI, Short of breath. denies: Cough Gastrointestinal: See HPI, Diarrhea, Nausea, Vomiting. denies: Abdominal pain Genitourinary: No symptoms reported Female Genitourinary: See HPI, Last menstrual period. denies: Musculoskeletal: No symptoms reported Skin: No symptoms reported Hematologic/Lymphatic: No symptoms reported Neurological/Psychological: No symptoms reported -: Yes All other systems reviewed and negative Physical Exam - Vital signs Vitals: Resp Pulse Ox 18 99 06/12/19 15:32 06/12/19 15:32 - Notes Notes: Physical Exam: General: Alert, appears well. HEENT: Normocephalic. Atraumatic. PERRL. Extraocular movements intact. Oropharynx clear. Neck: Supple. Non-tender. Respiratory: No respiratory distress. Clear and equal breath sounds bilaterally. Cardiovascular: Regular rate and rhythm. Abdominal: Obese. Non-tender. No distension. Normal Bowel Sounds. Back: No gross abnormalities. Extremities: Moves all four extremities. Upper extremities: Normal inspection. Normal ROM. Lower extremities: Normal inspection. No edema. Normal ROM. Neurological: Normal cognition. AAOx4. Normal speech. Psychological: Normal affect. Normal Mood. Skin: Warm. Dry. Normal color. Course - Re-evaluation Re-evalutation: 06/12/19 18:30 MDM 43 year old female arrives with paplitations and a hard beating in her chest mostly in her left chest today. Cardiac risks include dm, hld and tobacco use. No exertional component to this and ekg and workup here - troponin times 2, cxr and labs all look well. We discussed follow up and she expressed understanding regarding follow up. - Vital Signs Vital signs: Temp Pulse Resp BP Pulse Ox 19 116/68 98 06/12/19 19:01 06/12/19 19:00 06/12/19 19:01 - Laboratory Result Diagrams: 06/12/19 15:45 06/12/19 15:45 Laboratory results interpreted by me: 06/12/19 06/12/19 15:45 15:45 RDW 14.1 H Glucose 166 H - Diagnostic Test Radiology reviewed: Image reviewed, Reports reviewed - EKG Interpretation by Me EKG shows normal: Sinus rhythm Rate: Normal Rhythm: NSR - NSR Nl [place] [address] elevation or depression, repolarization abnormality. my interpretation. Discharge - Discharge Clinical Impression: Palpitations Hyperglycemia due to type 2 diabetes mellitus Qualifiers: Diabetes mellitus mcc insulin use: with mcc use Qualified Code(s): E11.65 - Type 2 diabetes mellitus with hyperglycemia; Z79.4 - [employer] (current) use of insulin Condition: Good Disposition: HOME, SELF-CARE Instructions: Palpitations (Irregular or Rapid Heartrate) ([facility]) Additional Instructions: Call the [facility] in follow up and Dr. Wiley. Please return here for chest pain or shortness of breath or other problems or concerns. Forms: Return to Work Referrals: [facility] [[facility]] - Follow up as needed ARAVIND WILEY MD [ACTIVE STAFF] - Follow up as needed I personally performed the services described in the documentation, reviewed and edited the documentation which was dictated to the scribe in my presence, and it accurately records my words and actions.
[2019-06-12 16:12] LABS: ABSOLUTE EOSINOPHILS # (AUTO) 0.3 10^3/uL (0.0-0.6); ABSOLUTE LYMPHOCYTES (AUTO) 2.3 10^3/uL (0.5-4.7); ABSOLUTE MONOCYTES (AUTO) 0.4 10^3/uL (0.1-1.4); BASOPHILS % (AUTO) 0.5 % (0-2); EOSINOPHILS % (AUTO) 3.8 % (0-6); HEMATOCRIT 37.2 % (36.0-47.0); LYMPHOCYTES % (AUTO) 28.1 % (13-45); MEAN CORPUSCULAR HEMOGLOBIN 29.6 pg (27.0-33.4); MEAN CORPUSCULAR HGB CONC 34.9 g/dL (32.0-36.0); MEAN CORPUSCULAR VOLUME 85 fl (80-97); MONOCYTES % (AUTO) 5.4 % (3-13); PLATELET COUNT 234 10^3/uL (150-450); RED BLOOD COUNT 4.39 10^6/uL (3.72-5.28); RED CELL DISTRIBUTION WIDTH 14.1 % (11.5-14.0); SEGMENTED NEUTROPHILS % (AUTO) 62.2 % (42-78); TOTAL CELLS COUNTED % (AUTO) 100 %
[2019-06-12 16:33] LABS: ALBUMIN 4.6 g/dL (3.5-5.0); ALKALINE PHOSPHATASE 74 U/L (38-126); ANION GAP 8 (5-19); ASPARTATE AMINO TRANSFERASE 26 U/L (14-36); BILIRUBIN,TOTAL 0.4 mg/dL (0.2-1.3); BLOOD UREA NITROGEN 13 mg/dL (7-20); CALCIUM 9.8 mg/dL (8.4-10.2); CARBON DIOXIDE 26 mmol/L (22-30); CHLORIDE 104 mmol/L (98-107); GLUCOSE 166 mg/dL (75-110); POTASSIUM 3.9 mmol/L (3.6-5.0); TOTAL PROTEIN 7.4 g/dL (6.3-8.2)
[2019-06-12 21:08] VITALS: BP 101/65
--- NOTE | 2019-06-13 07:53 | EKG REPORT ---
SEVERITY:- BORDERLINE ECG - SINUS TACHYCARDIA NONSPECIFIC ST-T CHANGES- INFERIOR LEADS : Confirmed by: Maxwell Gonzalez MD 13-Jun-2019 07:52:01
== END 2019-06-12 21:14 | disposition home or self-care (01) ==
LOC: ER 14:24
DX: R00.2 Palpitations (principal); E11.65 Type 2 diabetes mellitus with hyperglycemia; R11.2 Nausea with vomiting, unspecified; R06.02 Shortness of breath; E78.00 Pure hypercholesterolemia, unspecified; Z79.4 Long term (current) use of insulin; Z90.49 Acquired absence of other specified parts of digestive tract; Z98.51 Tubal ligation status
CPT/HCPCS: 93005; 99285; 96361; 96374; 96375; 36415; 83690; 83735; 84443; 85025; 80053; 84484; 71046; 93010; C9113; J2405; J7030